=== PATIENT | female | born 1960 | race Two or more races ===

== ENCOUNTER → 2022-11-16 06:00 | Outpatient (CLI) | payer OTHER ==
[~2022-11-16] VITALS: Ht 160 cm; Wt 92.5 kg
[~2022-11-16 06:00] MED LIST: AMLODIPINE BESYL5 MG PO; CARAFATE1 GM PO; COZAAR100 MG PO; GABAPENTIN800 MG; JANUVIA50 MG PO; LEVOTHYROXINE25 MCG PO; LIPITOR40 MG PO; LIPOFEN150 MG PO; PROTONIX40 MG PO; TOPROL XL25 M1 PO
== END | disposition home or self-care (01) ==
LOC: ADM 11-12 09:15 → LAB 06:00 → ADM 07:45 → EDSTATUS 11-18 07:45 → CIR.AMB 11-18 07:45
PROVIDERS: ATTEND Obstetrics & Gynecology
DX: Z20.828 Contact with and (suspected) exposure to other viral communicable diseases (principal); R93.5 Abnormal findings on diagnostic imaging of other abdominal regions, including retroperitoneum; R10.2 Pelvic and perineal pain; E11.9 Type 2 diabetes mellitus without complications; R79.1 Abnormal coagulation profile; N39.0 Urinary tract infection, site not specified; Z03.818 Encounter for observation for suspected exposure to other biological agents ruled out

== ENCOUNTER → 2023-01-17 06:00 | Outpatient (CLI) | payer OTHER | END | disposition home or self-care (01) | LOC: LAB 06:00 → ADM 07:45 → EDSTATUS 01-20 07:45 → CIR.AMB 01-20 07:45 | PROVIDERS: ATTEND Obstetrics & Gynecology | DX: Z03.818 Encounter for observation for suspected exposure to other biological agents ruled out (principal); Z20.828 Contact with and (suspected) exposure to other viral communicable diseases ==